=== PATIENT | female | born 1955 | race Caucasian/White ===

== ENCOUNTER 2019-02-27 18:54 | Emergency (ER) | payer SELFPAY ==
[2019-02-27] MEDS ORDERED: Lisinopril 10 MG Tab PO ONE (20:04)
--- NOTE | 2019-02-27 20:05 | EDM.PDOC ---
ED HPI GENERAL MEDICAL PROBLEM - General Chief Complaint: General Stated Complaint: PT HAS FLU Time Seen by Provider: 02/27/19 19:55 Source of Information: Reports: Patient History Limitations: Reports: No Limitations - History of Present Illness INITIAL COMMENTS - FREE TEXT/NARRATIVE: HISTORY AND PHYSICAL: History of present illness: Patient is a 64-year-old female presents to the ED today with concern of generalized body aches, mild headache earlier today, and low grade fever at home since this morning but has not checked her temperature at home. Patient states she feels as if she has the flu but states that this evening has been better than this morning and her headache is gone. Patient states she has high blood pressure and what she is supposed to take 20 mg of lisinopril she ran out of this medication a few weeks ago and needs to make an appointment with her primary care to get these refilled. Patient denies chills, chest pain, shortness of breath, or cough. Denies neck stiff ness, change in vision, syncope, or near syncope. Denies nausea, vomiting , abdominal pain, diarrhea, constipation, or dysuria. Has not noted any blood in urine or stool. Patient has been eating and drinking appropriately. Review of systems: As per history of present illness and below otherwise all systems reviewed and negative. Past medical history: As per history of present illness and as reviewed below otherwise noncontributory. Surgical history: As per history of present illness and as reviewed below otherwise noncontributory. Social history: See social history for further information Family history: As per history of present illness and as reviewed below otherwise noncontributory. Physical exam: General: Patient is alert, oriented, and in no acute distress. Patient sitting comfortably on exam table. HEENT: Atraumatic, normocephalic, pupils equal and reactive bilaterally, negative for conjunctival pallor or scleral icterus, mucous membranes moist, TMs normal bilaterally, throat clear, neck supple, nontender, trachea midline. No drooling or trismus noted. No meningeal signs. No hot potato voice noted. Lungs: Clear to auscultation, breath sounds equal bilaterally, chest nontender. Heart: S1S2, regular rate and rhythm without overt murmur Abdomen: Soft, nondistended, nontender. Negative for masses or hepatosplenomegaly. Negative for costovertebral tenderness. Pelvis: Stable nontender. Genitourinary: Deferred. Rectal: Deferred. Skin: Intact, warm, dry. No lesions or rashes noted. Extremities: Atraumatic, negative for cords or calf pain. Neurovascular unremarkable. Neuro: Awake, alert, oriented. Cranial nerves II through XII unremarkable. Cerebellum unremarkable. Motor and sensory unremarkable throughout. Exam nonfocal. Notes: Dr. Venegas verbally involved in patient care. Patient continues to deny abdominal pain. Patient states she does not have any more refills of her lisinopril (but has clonidine at home) so I will give her enough for 2 weeks. Patient will have an expedited follow up with primary care to further address her hypertension. Patient is placed on the expedited follow-up with to be seen by primary care provider Voices understanding and is agreeable to plan of care. Denies any further questions or concerns at this time. Diagnostics: CBC, CMP, UA, lipase, influenza, strep, chest x-ray, EKG, troponin Therapeutics: Lisinopril, Clonidine Prescription: Bactrim DS, Lisinopril Impression: Urinary tract infection Elevated lipase Abnormal renal function tests Hypertension Plan: 1. Encourage small but frequent fluid to prevent dehydration. You bland diet until you are able to follow up with your primary care. 2. You had been placed on the expedited follow up list for repeat lab work with a primary care provider; follow-up as discussed. If you do not hear about an appointment on Saturday morning, call the clinic to check in. 3. You can use ibuprofen and Tylenol as directed for pain and discomfort. Return to the ED as needed and as discussed. Take medication as prescribed Definitive disposition and diagnosis as appropriate pending reevaluation and review of above. generalized Pain Score (Numeric/FACES): 8 - Related Data Allergies Allergy/AdvReac Type Severity Reaction Status Date / Time No Known Allergies Allergy Verified 02/27/19 19:24 Home Meds: Home Meds Lisinopril 20 mg PO DAILY 02/27/19 [History] cloNIDine [Catapres] 0.1 mg PO DAILY 02/27/19 [History] Past Medical History Cardiovascular History: Reports: Hypertension Genitourinary History: Reports: None [employer] History: Reports: - Past Surgical History Cardiovascular Surgical History: Reports: None Female Surgical History: Reports: Hysterectomy Social & Family History - Family History Family Medical History: Noncontributory - Tobacco Use Smoking Status *Q: Current Every Day Smoker Years of Tobacco use: 40 Packs/Tins Daily: 0.5 - Caffeine Use Caffeine Use: Reports: Coffee - Recreational Drug Use Recreational Drug Use: No ED ROS GENERAL - Review of Systems Review Of Systems: ROS reveals no pertinent complaints other than HPI. ED EXAM, GENERAL - Physical Exam Exam: See Below (See dictation) Course - Vital Signs Last Recorded V/S: Last Vital Signs Temp 35.9 C 02/27/19 19:02 Pulse 88 02/27/19 21:44 Resp 18 02/27/19 21:44 BP 176/129 H 02/27/19 21:44 Pulse Ox 98 02/27/19 21:44 - Orders/Labs/Meds Orders: Active Orders 24 hr Category Date Time Status Communication Order [RC] STAT Care 02/27/19 21:15 Active Communication Order [RC] STAT Care 02/27/19 21:29 Active EKG Documentation Completion [RC] STAT Care 02/27/19 19:55 Active Orthostatic Vital Signs [RC] ASDIRECTED Care 02/27/19 21:29 Active CULTURE STREP A CONFIRMATION [RM] Stat Lab 02/27/19 20:09 Results CULTURE URINE [RM] Stat Lab 02/27/19 20:20 Received STREP SCRN A RAPID W CULT CONF [RM] Stat Lab 02/27/19 20:09 Results Labs: Laboratory Tests 02/27/19 02/27/19 02/27/19 Range/Units 20:18 20:18 20:18 WBC 11.48 H (4.0-11.0) K/uL RBC 4.70 (4.30-5.90) M/uL Hgb 14.2 (12.0-16.0) g/dL Hct 41.8 (36.0-46.0) % MCV 88.9 (80.0-98.0) fL MCH 30.2 (27.0-32.0) pg MCHC 34.0 (31.0-37.0) g/dL RDW Std Deviation 45.5 (28.0-62.0) fl RDW Coeff of Charly 14 (11.0-15.0) % Plt Count 212 (150-400) K/uL MPV 11.10 (7.40-12.00) fL Neut % (Auto) 71.3 (48.0-80.0) % Lymph % (Auto) 18.0 (16.0-40.0) % [place] % (Auto) 9.7 (0.0-15.0) % Eos % (Auto) 0.5 (0.0-7.0) % Baso % (Auto) 0.5 (0.0-1.5) % Neut # (Auto) 8.2 H (1.4-5.7) K/uL Lymph # (Auto) 2.1 (0.6-2.4) K/uL [place] # (Auto) 1.1 H (0.0-0.8) K/uL Eos # (Auto) 0.1 (0.0-0.7) K/uL Baso # (Auto) 0.1 (0.0-0.1) K/uL Nucleated RBC % 0.0 /100WBC Nucleated RBCs # 0 K/uL INR 0.93 Sodium 140 (136-145) mmol/L Potassium 4.0 (3.5-5.1) mmol/L Chloride 103 (98-107) mmol/L Carbon Dioxide 26.4 (21.0-32.0) mmol/L BUN 33 H (7.0-18.0) mg/dL Creatinine 1.7 H (0.6-1.0) mg/dL Est Cr Clr Drug Dosing 26.39 mL/min Estimated GFR (MDRD) 30.3 ml/min Glucose 89 (74-106) mg/dL Calcium 9.2 (8.5-10.1) mg/dL Total Bilirubin 0.4 (0.2-1.0) mg/dL AST 19 (15-37) IU/L ALT 13 L (14-63) IU/L Alkaline Phosphatase 101 (46-116) U/L Troponin I < 0.050 (0.000-0.056) ng/mL Total Protein 8.2 (6.4-8.2) g/dL Albumin 3.6 (3.4-5.0) g/dL Globulin 4.6 H (2.6-4.0) g/dL Albumin/Globulin Ratio 0.8 L (0.9-1.6) Lipase 460 H (73-393) U/L Urine Color Urine Appearance Urine pH (5.0-8.0) Ur Specific [place] (1.001-1.035) Urine Protein (NEGATIVE) mg/dL Urine Glucose (UA) (NEGATIVE) mg/dL Urine Ketones (NEGATIVE) mg/dL Urine Occult Blood (NEGATIVE) Urine Nitrite (NEGATIVE) Urine Bilirubin (NEGATIVE) Urine Urobilinogen (<2.0) EU/dL Ur Leukocyte Esterase (NEGATIVE) Urine RBC (0-2/HPF) Urine WBC (0-5/HPF) Ur Epithelial Cells (NONE-FEW) Urine Bacteria (NEGATIVE) 02/27/19 Range/Units 20:20 WBC (4.0-11.0) K/uL RBC (4.30-5.90) M/uL Hgb (12.0-16.0) g/dL Hct (36.0-46.0) % MCV (80.0-98.0) fL MCH (27.0-32.0) pg MCHC (31.0-37.0) g/dL RDW Std Deviation (28.0-62.0) fl RDW Coeff of Charly (11.0-15.0) % Plt Count (150-400) K/uL MPV (7.40-12.00) fL Neut % (Auto) (48.0-80.0) % Lymph % (Auto) (16.0-40.0) % [place] % (Auto) (0.0-15.0) % Eos % (Auto) (0.0-7.0) % Baso % (Auto) (0.0-1.5) % Neut # (Auto) (1.4-5.7) K/uL Lymph # (Auto) (0.6-2.4) K/uL [place] # (Auto) (0.0-0.8) K/uL Eos # (Auto) (0.0-0.7) K/uL Baso # (Auto) (0.0-0.1) K/uL Nucleated RBC % /100WBC Nucleated RBCs # K/uL INR Sodium (136-145) mmol/L Potassium (3.5-5.1) mmol/L Chloride (98-107) mmol/L Carbon Dioxide (21.0-32.0) mmol/L BUN (7.0-18.0) mg/dL Creatinine (0.6-1.0) mg/dL Est Cr Clr Drug Dosing mL/min Estimated GFR (MDRD) ml/min Glucose (74-106) mg/dL Calcium (8.5-10.1) mg/dL Total Bilirubin (0.2-1.0) mg/dL AST (15-37) IU/L ALT (14-63) IU/L Alkaline Phosphatase (46-116) U/L Troponin I (0.000-0.056) ng/mL Total Protein (6.4-8.2) g/dL Albumin (3.4-5.0) g/dL Globulin (2.6-4.0) g/dL Albumin/Globulin Ratio (0.9-1.6) Lipase (73-393) U/L Urine Color YELLOW Urine Appearance CLOUDY Urine pH 6.0 (5.0-8.0) Ur Specific [place] 1.025 (1.001-1.035) Urine Protein >=300 H (NEGATIVE) mg/dL Urine Glucose (UA) NEGATIVE (NEGATIVE) mg/dL Urine Ketones NEGATIVE (NEGATIVE) mg/dL Urine Occult Blood MODERATE H (NEGATIVE) Urine Nitrite POSITIVE H (NEGATIVE) Urine Bilirubin NEGATIVE (NEGATIVE) Urine Urobilinogen 0.2 (<2.0) EU/dL Ur Leukocyte Esterase NEGATIVE (NEGATIVE) Urine RBC 2-4 (0-2/HPF) Urine WBC 8-12 (0-5/HPF) Ur Epithelial Cells FEW (NONE-FEW) Urine Bacteria 2+ H (NEGATIVE) Meds: Medications Discontinued Medications Generic Name Dose Route Start Last Admin Trade Name eLobardoq PRN Reason Stop Dose Admin Clonidine HCl 0.1 mg 02/27/19 21:09 02/27/19 21:14 Catapres PO 02/27/19 21:10 0.1 mg ONETIME ONE Administration Lisinopril 20 mg 02/27/19 20:04 02/27/19 20:11 Prinivil PO 02/27/19 20:05 20 mg ONETIME ONE Administration Departure - Departure Time of Disposition: 21:58 Disposition: Home, Self-Care 01 Clinical Impression: Elevated lipase, Abnormal renal function test Urinary tract infection Qualifiers: Urinary tract infection type: acute cystitis Hematuria presence: with hematuria Qualified Code(s): N30.01 - Acute cystitis with hematuria Hypertension Qualifiers: Hypertension type: unspecified Qualified Code(s): I10 - Essential (primary) hypertension - Discharge Information Instructions: Urinary Tract Infection, Adult Referrals: PCP,None [Primary Care Provider] - Forms: ED Department Discharge Additional Instructions: The following information is given to patients seen in the emergency department who are being discharged to home. This information is to outline your options for follow-up care. We provide all patients seen in our emergency department with a follow-up referral. The need for follow-up, as well as the timing and circumstances, are variable depending upon the specifics of your emergency department visit. If you don't have a primary care physician on staff, we will provide you with a referral. We always advise you to contact your personal physician following an emergency department visit to inform them of the circumstance of the visit and for follow-up with them and/or the need for any referrals to a consulting specialist. The emergency department will also refer you to a specialist when appropriate. This referral assures that you have the opportunity for follow-up care with a specialist. All of these measure are taken in an effort to provide you with optimal care, which includes your follow-up. Under all circumstances we always encourage you to contact your private physician who remains a resource for coordinating your care. When calling for follow-up care, please make the office aware that this follow-up is from your recent emergency room visit. If for any reason you are refused follow-up, please contact the [facility] Emergency Department at and asked to speak to the emergency department charge nurse. [facility] [address] [address] [id number] [id number] 1. Encourage small but frequent fluid to prevent dehydration. You bland diet until you are able to follow up with your primary care. 2. You had been placed on the expedited follow up list for repeat lab work with a primary care provider; follow-up as discussed. 3. You can use ibuprofen and Tylenol as directed for pain and discomfort. Return to the ED as needed and as discussed. Take medication as prescribed - My Orders Last 24 Hours: My Active Orders 02/27/19 19:55 EKG Documentation Completion [RC] STAT 02/27/19 20:09 CULTURE STREP A CONFIRMATION [RM] Stat STREP SCRN A RAPID W CULT CONF [RM] Stat 02/27/19 20:20 CULTURE URINE [RM] Stat 02/27/19 21:15 Communication Order [RC] STAT 02/27/19 21:29 Communication Order [RC] STAT Orthostatic Vital Signs [RC] ASDIRECTED - Assessment/Plan Last 24 Hours: My Active Orders 02/27/19 19:55 EKG Documentation Completion [RC] STAT 02/27/19 20:09 CULTURE STREP A CONFIRMATION [RM] Stat STREP SCRN A RAPID W CULT CONF [RM] Stat 02/27/19 20:20 CULTURE URINE [RM] Stat 02/27/19 21:15 Communication Order [RC] STAT 02/27/19 21:29 Communication Order [RC] STAT Orthostatic Vital Signs [RC] ASDIRECTED
--- NOTE | 2019-02-27 20:29 | CR ---
Indication: Weakness Technique: Chest 1 view Comparison: None Findings/Impression: Cardiovascular and mediastinum: Heart size and vasculature are normal in caliber and appearance. Mediastinum is within normal limits. Lungs and pleural space: Lungs are clear. No sign of infiltrate or mass. No sign of pleural effusion. No pneumothorax. Bones and soft tissues: No significant findings. Dictated by Brisa Cardenas MD @ Feb 27 2019 8:27PM Signed by Dr. Brisa Cardenas @ Feb 27 2019 8:27PM
[2019-02-27 20:54] LABS: BLOOD UREA NITROGEN,BUN 33 mg/dL (7.0-18.0); CARBON DIOXIDE,CO2 26.4 mmol/L (21.0-32.0); CHLORIDE,CL 103 mmol/L (98-107); GLUCOSE RANDOM 89 mg/dL (74-106); LIPASE 460 U/L (73-393); SODIUM,NA 140 mmol/L (136-145)
[2019-02-27] MEDS ORDERED: cloNIDine 0.1 MG Tab PO ONE (21:09)
== END 2019-02-27 21:55 | disposition home or self-care (01) ==
LOC: MW.ED 18:54
DX: I10 Essential (primary) hypertension (principal); N30.01 Acute cystitis with hematuria; R94.4 Abnormal results of kidney function studies; R74.8 Abnormal levels of other serum enzymes; Z90.710 Acquired absence of both cervix and uterus; F17.210 Nicotine dependence, cigarettes, uncomplicated; Z79.899 Other long term (current) drug therapy
CPT/HCPCS: 36415; 71045; 80053; 81001; 83690; 84484; 85025; 85610; 87081; 87086; 87088; 87186; 87804; 87880; 93005; 99284; A9270

== ENCOUNTER 2022-07-20 10:51 | Emergency (ER) | payer MEDICARE ==
[2022-07-20] MEDS ORDERED: Lidocaine 1% 5 ML VIAL INJECT ONE (11:57)
[2022-07-20] MEDS ORDERED: Diphtheria,Pertussis(Acell),Tetanus Vaccine 0.5 ML Syringe IM ONE (11:57)
== END 2022-07-20 15:30 | disposition home or self-care (01) ==
LOC: MW.ED 10:51
DX: S81.012A Laceration without foreign body, left knee, initial encounter (principal); I10 Essential (primary) hypertension; Z23 Encounter for immunization; Z79.899 Other long term (current) drug therapy; W00.0XXA Fall on same level due to ice and snow, initial encounter
CPT/HCPCS: 12004; 73562-26-LT; 73562-LT; 90471; 90715; 99283; 99283-25; J3490

== ENCOUNTER 2023-05-29 17:56 | Emergency (ER) | payer MEDICARE ==
[2023-05-29] MEDS ORDERED: Sodium Chloride 0.9% 2.5 ML Syringe FLUSH PRN (19:08)
[2023-05-29] MEDS ORDERED: Sodium Chloride 0.9% 1,000 ML IV ONE (19:08)
[2023-05-29] MEDS ORDERED: Albuterol/Ipratropium 3.0-0.5 MG/3 ML Neb Soln NEB ONE (19:08)
[2023-05-29] MEDS ORDERED: Sodium Chloride 0.9% 10 ML Syringe FLUSH PRN (19:08)
[2023-05-29 19:12] LABS: CORONAVIRUS COVID-19 NAA NEGATIVE (NEGATIVE); INFLUENZA A NAA NEGATIVE (NEGATIVE); INFLUENZA B NAA NEGATIVE (NEGATIVE)
[2023-05-29] MEDS ORDERED: cefTRIAXone 2 GM in Sodium Chloride 0.9% 50 ML IV ONE (19:30)
[2023-05-29 19:44] LABS: BASOPHILS ABSOLUTE AUTO 0.04 K/uL (0.00-0.20); BASOPHILS PERCENT AUTO 0.3 % (0.0-1.0); HEMATOCRIT 40.8 % (37.0-47.0); HEMOGLOBIN 14.6 g/dL (12.0-16.0); IMMATURE GRAN ABSOLUTE AUTO 0.12 K/uL (0.00-0.05); IMMATURE GRAN PERCENT AUTO 0.8 % (0.0-0.4); LYMPHOCYTES ABSOLUTE AUTO 1.43 K/uL (1.00-4.80); LYMPHOCYTES PERCENT AUTO 9.8 % (24.0-44.0); MEAN CORPUSCULAR HEMOGLOBIN 28.6 pg (28.0-32.0); MEAN CORPUSCULAR HGB CONC 35.8 g/dL (32.0-36.0); MEAN CORPUSCULAR VOLUME 79.8 fL (83.0-99.0); MEAN PLATELET VOLUME 10.5 fL (9.4-12.3); MONOCYTES ABSOLUTE AUTO 1.45 K/uL (0.00-0.80); MONOCYTES PERCENT AUTO 9.9 % (0.0-8.0); NEUTROPHILS ABSOLUTE AUTO 11.57 K/uL (1.80-7.70); NEUTROPHILS PERCENT AUTO 79.2 % (41.0-71.0); PLATELET COUNT,PLT 320 K/uL (150-400); RED BLOOD CELL COUNT 5.11 M/uL (4.10-5.30); WHITE BLOOD CELL COUNT,WBC 14.61 K/uL (3.9-11.3)
[2023-05-29 20:08] LABS: LACTIC ACID 1.2 mmol/L (0.4-2.0)
[2023-05-29 20:10] LABS: A/G RATIO 0.4 (0.9-1.6); ALBUMIN 2.4 g/dL (3.4-5.0); BILIRUBIN TOTAL 0.5 mg/dL (0.2-1.0); CALCIUM 8.9 mg/dL (8.5-10.1); CARBON DIOXIDE,CO2 21.2 mmol/L (21.0-32.0); CREATININE 5.5 mg/dL (0.6-1.0); EST CRCL DRUG DOSING (CG) 9.07 mL/min; POTASSIUM,K 2.8 mmol/L (3.5-5.1); PROTEIN TOTAL,TP 8.5 g/dL (6.4-8.2)
[2023-05-29 20:35] LABS: APPEARANCE,URINE CLEAR; BILIRUBIN,URINE NEGATIVE (NEGATIVE); COLOR,URINE YELLOW; GLUCOSE,URINE NEGATIVE (NEGATIVE); KETONES,URINE TRACE mg/dL (NEGATIVE); LEUKOCYTE ESTERASE,URINE NEGATIVE (NEGATIVE); NITRITE,URINE NEGATIVE (NEGATIVE); OCCULT BLOOD,URINE MODERATE (NEGATIVE); PROTEIN,URINE >=300 mg/dL (NEGATIVE); UROBILINOGEN,URINE 0.2 EU/dL (<2.0)
[2023-05-29 20:42] LABS: BACTERIA,URINE FEW (NEGATIVE); MUCUS,URINE LIGHT (NONE-MOD); SQUAMOUS EPITHELIAL CELLS,UR OCCASIONAL; WBC,URINE 0-1 (0-5/HPF)
[2023-05-29] MEDS ORDERED: Lactated Ringers 1,000 ML IV ONE (20:47)
[2023-05-29] MEDS ORDERED: Aspirin 81 MG Tab.Chew PO ONE (21:02)
[2023-05-29] MEDS ORDERED: Nitroglycerin 2% Oint 1 GM UD Packet TOP ONE (21:02)
[2023-05-29] MEDS ORDERED: Labetalol 100 MG/20 ML MDV IVPUSH ONE (21:44)
[2023-05-29] MEDS ORDERED: Potassium Chloride 10% 20 MEQ/15 ML Soln 15 ML UD Cup PO ONE (22:46)
== END 2023-05-29 22:51 ==
LOC: MW.ED 17:56
DX: I48.91 Unspecified atrial fibrillation (principal); N17.9 Acute kidney failure, unspecified; E87.6 Hypokalemia; J18.9 Pneumonia, unspecified organism; I21.4 Non-ST elevation (NSTEMI) myocardial infarction; I10 Essential (primary) hypertension; Z20.822 Contact with and (suspected) exposure to COVID-19; F17.210 Nicotine dependence, cigarettes, uncomplicated; Z90.710 Acquired absence of both cervix and uterus
CPT/HCPCS: 0240U; 36415; 71046; 80053; 81001; 83605; 83690; 83735; 84484; 85025; 85379; 87040; 93005; 93970; 96361; 96365; 96375; 99285; A9270; J0696; J3490; J7030; J7120; J7620-GY

== ENCOUNTER 2023-06-09 18:32 | Emergency (ER) | payer MEDICARE ==
[2023-06-09] MEDS ORDERED: Albuterol/Ipratropium 3.0-0.5 MG/3 ML Neb Soln NEB ONE (18:43)
[2023-06-09 19:15] LABS: BASOPHILS ABSOLUTE AUTO 0.07 K/uL (0.00-0.20); BASOPHILS PERCENT AUTO 0.7 % (0.0-1.0); EOSINOPHILS ABSOLUTE AUTO 0.18 K/uL (0.00-0.45); EOSINOPHILS PERCENT AUTO 1.8 % (0.0-6.0); HEMOGLOBIN 10.6 g/dL (12.0-16.0); IMMATURE GRAN ABSOLUTE AUTO 0.04 K/uL (0.00-0.05); IMMATURE GRAN PERCENT AUTO 0.4 % (0.0-0.4); LYMPHOCYTES ABSOLUTE AUTO 1.69 K/uL (1.00-4.80); MEAN CORPUSCULAR HEMOGLOBIN 28.6 pg (28.0-32.0); MEAN CORPUSCULAR HGB CONC 33.1 g/dL (32.0-36.0); MEAN CORPUSCULAR VOLUME 86.3 fL (83.0-99.0); MEAN PLATELET VOLUME 10.6 fL (9.4-12.3); MONOCYTES ABSOLUTE AUTO 0.88 K/uL (0.00-0.80); MONOCYTES PERCENT AUTO 8.9 % (0.0-8.0); NEUTROPHILS ABSOLUTE AUTO 7.07 K/uL (1.80-7.70); NEUTROPHILS PERCENT AUTO 71.2 % (41.0-71.0); PLATELET COUNT,PLT 347 K/uL (150-400); RED BLOOD CELL COUNT 3.71 M/uL (4.10-5.30); WHITE BLOOD CELL COUNT,WBC 9.93 K/uL (3.9-11.3)
[2023-06-09 19:51] LABS: CORONAVIRUS COVID-19 NAA NEGATIVE (NEGATIVE); INFLUENZA A NAA NEGATIVE (NEGATIVE); INFLUENZA B NAA NEGATIVE (NEGATIVE); RESPIRATORY SYNCYTIAL VIR NAA NEGATIVE (NEGATIVE)
[2023-06-09 19:54] LABS: A/G RATIO 0.4 (0.9-1.6); ALBUMIN 2.1 g/dL (3.4-5.0); BILIRUBIN TOTAL 0.3 mg/dL (0.2-1.0); CALCIUM 8.6 mg/dL (8.5-10.1); CREATININE 3.6 mg/dL (0.6-1.0); EST CRCL DRUG DOSING (CG) 13.46 mL/min; MAGNESIUM 2.2 mg/dL (1.8-2.4); POTASSIUM,K 4.2 mmol/L (3.5-5.1); PROTEIN TOTAL,TP 7.6 g/dL (6.4-8.2); TSH ULTRASENSITIVE 2.35 uIU/mL (0.36-3.74)
[2023-06-09] MEDS ORDERED: Furosemide 40 MG/4 ML VIAL IVPUSH ONE (21:42)
== END 2023-06-09 22:39 | disposition left against medical advice (07) ==
LOC: MW.ED 18:32
DX: J81.1 Chronic pulmonary edema (principal); I12.9 Hypertensive chronic kidney disease with stage 1 through stage 4 chronic kidney disease, or unspecified chronic kidney disease; N18.9 Chronic kidney disease, unspecified; D64.9 Anemia, unspecified
CPT/HCPCS: 0241U; 36415; 71045; 80053; 83690; 83735; 83880; 84443; 84484; 85025; 93005; 96374; 99285; J1940; 93010; 99284; J7620-GY

== ENCOUNTER 2024-11-10 06:51 | Emergency (ER) | payer MEDICARE ==
[2024-11-10] MEDS: diphenhydrAMINE 25 MG Cap PO ONE (08:22)
== END 2024-11-10 09:30 | disposition home or self-care (01) ==
LOC: MW.ED 06:51
DX: L29.9 Pruritus, unspecified (principal); I10 Essential (primary) hypertension; Z79.899 Other long term (current) drug therapy; Z90.710 Acquired absence of both cervix and uterus
CPT/HCPCS: 99282; A9270